=== PATIENT | male | born 1955 | race Caucasian/White ===

== ENCOUNTER → 2019-07-16 | Outpatient (CLI) | payer OTHER | LOC: M.LAB 08:42 | PROVIDERS: ATTEND Family Medicine | DX: Z03.818 Encounter for observation for suspected exposure to other biological agents ruled out (principal) ==

== ENCOUNTER → 2020-04-30 | Outpatient (CLI) | payer OTHER | LOC: M.LAB 16:19 | PROVIDERS: ATTEND Pathology Anatomic Pathology & Clinical Pathology | DX: U07.1 COVID-19 (principal) ==